=== PATIENT | female | born 1955 | race Caucasian/White ===

== ENCOUNTER 2022-08-11 13:38 | Outpatient (REF) | payer OTHER, MEDICAID, SELFPAY ==
--- NOTE | ~2022-08-11 | MR_ITS ---
EXAMINATION: MR BRAIN WITHOUT AND WITH CONTRAST CLINICAL INFORMATION: 67-year-old with cerebral microvascular disease and seizure. COMPARISON: 01/27/2020 MRI TECHNIQUE: Multiplanar, multisequence MRI of the brain was obtained before and after the intravenous administration of 6 mL Gadavist. FINDINGS: Brain Volume: Oapi-ie-ezrtrzaq generalized diffuse parenchymal volume loss within the limitations of qualitative assessment, similar to the previous exam. Structural: No malformations. Brain and Meninges: DWI sequence demonstrates no restricted diffusion to suggest acute or subacute cerebral ischemia. Gradient refocused imaging demonstrates no abnormal parenchymal magnetic susceptibility artifact to suggest hemorrhage, hemosiderin staining or abnormal parenchymal mineralization. There is a small focus of susceptibility artifact along the inner table of the right frontal calvarium which is unchanged from the previous study, which could reflect a small benign osteoma. Redemonstrated are moderately extensive white matter T2 hyperintensities in the subcortical and deeper periventricular regions of both cerebral hemispheres with areas of confluence in the deep parietal and periatrial regions, similar in appearance. These findings are consistent with moderately advanced chronic ischemic microangiopathy. Small punctate and patchy zones of T2 hyperintensities are seen in the central and dorsal ila, also likely reflecting chronic ischemic microangiopathy, stable in appearance. The mesial temporal lobe structures are bilaterally symmetric and are normal in signal intensity with bilaterally symmetric volume loss commensurate with the degree of whole brain volume loss. Bhandari-white matter differentiation is intact. No intracranial mass lesions, extra-axial fluid collections, space-occupying process, or mass effect are identified and there is no pathologic intracranial enhancement when accounting for some flow artifacts. Ventricles and Subarachnoid Spaces: The ventricular system and subarachnoid spaces are consistent with the degree of overall volume loss and are stable from previous exam without hydrocephalus. Incidental cavum septum pellucidum and cavum vergae is stable. Orbital Structures: Grossly unremarkable within the limitations of the exam. Vascular: Signal voids are noted in the visualized major intracranial vessels. Osseous Structures, Sinuses/Mastoids, Extracranial Soft Tissues: Some retained secretions in the mastoids noted bilaterally, progressed from previous exam which are nonspecific findings. There is minor mucosal thickening in the ethmoid complex, similar to prior study. Osseous marrow signal intensity appears within normal limits. There is cervical spondylosis at C3-C4, unchanged in appearance. Visualized extracranial soft tissue structures appear grossly unremarkable. MR/MR head/brain wo/w con IMPRESSION: 1. Moderately advanced chronic ischemic microangiopathy in the white matter of both cerebral hemispheres and some degree of chronic ischemic microangiopathy in the ila, largely similar in appearance. 2. No acute intracranial process. No intracranial mass lesions, abnormal enhancement, extra-axial fluid collections, space-occupying process, hemorrhage or mass effect and no evidence for hydrocephalus. 3. Gxcc-io-hmwzmhhd generalized diffuse nonspecific brain parenchymal volume loss with corresponding prominence of the ventricular system and sulcal spaces, similar to previous exam. 4. Mild bilateral mastoid effusions on current study which are nonspecific findings.
== END 2022-08-11 13:39 | disposition home or self-care (01) ==
LOC: HO.MRI 13:38
PROVIDERS: Visit Provider Psychiatry & Neurology Neurology
DX: I67.9 Cerebrovascular disease, unspecified (principal); R56.9 Unspecified convulsions
CPT/HCPCS: 70553; A9585

== ENCOUNTER 2022-08-29 10:19 | Outpatient (REF) | payer MEDICAID, SELFPAY | END 2022-08-29 10:20 | disposition home or self-care (01) | LOC: HO.NEURO 10:19 | PROVIDERS: Visit Provider Psychiatry & Neurology Neurology | DX: Z13.89 Encounter for screening for other disorder (principal) ==

== ENCOUNTER 2022-11-09 11:45 | Outpatient (REF) | payer OTHER, MEDICAID, SELFPAY ==
--- NOTE | 2022-11-09 11:50 | EEG_ITS ---
PROCEDURE: 24-hour ambulatory EEG. The waking background activity consists of a low voltage posterior 10 hertz rocio frequency intermixed anteriorly with low-voltage fast frequencies and muscle artifacts. Drowsiness is characterized by diffuse theta slowing, and during sleep symmetrical frontocentral sleep spindles and vertex sharp transients developed over both hemispheres. noted briefly. Arouse is frequent and unremarkable. There are portions where there is no recording with data missing and an abundance of artifact. No focal, lateralizing, or paroxysmal discharges seen. IMPRESSION: This 24-hour ambulatory EEG is within normal limits. MD JASON Marrero/EDWINL / [id number]
== END 2022-11-09 11:46 | disposition home or self-care (01) ==
LOC: HO.NEURO 11:45
PROVIDERS: Visit Provider Psychiatry & Neurology Neurology
DX: R56.9 Unspecified convulsions (principal)
CPT/HCPCS: 95708

== ENCOUNTER 2024-02-19 13:25 | Outpatient (REF) | payer OTHER, MEDICAID, SELFPAY ==
[2024-02-19 14:38] LABS: Basophils Percent Auto 0.3 % (0-2); Eosinophils Absolute Auto 0.1 X10*3/uL (0.0-0.4); Eosinophils Percent Auto 0.6 % (0-4); Hematocrit 42.4 % (37.0-47.0); Hemoglobin 14.7 g/dl (12.0-16.0); Imm Gran Abs Auto 0.02 X10*3/uL (0.00-0.03); Imm Gran Pct Auto 0.2 % (0.0-0.4); Lymphocytes Absolute Auto 5.2 X10*3/uL (1.2-4.9); Lymphocytes Percent Auto 50.2 % (20-40); MANUAL DIFF FLAG SCAN; Mean Corpuscular HGB Conc 34.7 g/dl (31.0-35.0); Mean Corpuscular Hemoglobin 32.2 pg (27.0-33.0); Mean Platelet Volume 11.3 fL (9.4-12.3); Monocytes Absolute Auto 0.6 X10*3/uL (0.1-1.2); Monocytes Percent Auto 5.3 % (2-11); Neutrophils Absolute Auto 4.5 x10*3/uL (2.0-8.3); Neutrophils Percent Auto 43.4 % (45-73); Platelet Count 262 X10*3/uL (160-400); Red Blood Count 4.56 X10*6/uL (4.20-5.50); Red Cell Distribution Width 13.1 % (11.0-16.0); SCAN SMEAR FLAG 1; White Blood Count 10.4 X10*3/uL (4.8-10.8)
[2024-02-19 14:58] LABS: SLIDE REVIEW VERIFIED
[2024-02-19 15:06] LABS: Anion Gap 14 (12-20); Blood Urea Nitrogen 9 mg/dL (9-16); Calcium 10.4 mg/dL (8.4-10.2); Carbon Dioxide 31 mmol/L (22-29); Chloride 100 mmol/L (96-108); Estimated Glomerular Filt Rate > 60; Glucose Random 95 mg/dL (60-115); Potassium 3.9 mmol/L (3.3-5.1); Sodium 141 mmol/L (135-145)
[2024-02-19 15:27] LABS: Erythrocyte Sedimentation Rate 23 MM/HR (0-20)
== END 2024-02-19 13:26 | disposition home or self-care (01) ==
LOC: HO.LAB 13:25
PROVIDERS: Visit Provider Psychiatry & Neurology Neurology
DX: I67.9 Cerebrovascular disease, unspecified (principal)
CPT/HCPCS: 36415; 80048; 85025; 85652

== ENCOUNTER 2024-08-28 11:07 | Outpatient (REF) | payer OTHER, SELFPAY ==
--- NOTE | ~2024-08-28 | MR_ITS ---
EXAMINATION: MR BRAIN WITHOUT CONTRAST CLINICAL INFORMATION: Cerebral microvascular disease. COMPARISON: Brain MRI from 08/11/2022. TECHNIQUE: MRI of the brain was obtained using routine sequences without contrast. FINDINGS: Moderately motion degraded exam. No focal restricted diffusion is demonstrated to suggest acute or subacute cerebral ischemia. No evidence of acute or chronic hemorrhagic products on heme-sensitive imaging. Scattered and partially confluent periventricular, deep white matter, and brainstem T2 FLAIR hyperintensities consistent with moderate underlying microangiopathy. Proportional prominence of the ventricles and sulcal spaces without evidence of obstructive hydrocephalus. No abnormal mass effect. No midline shift. Normal appearance of the pituitary gland. Normal positioning of the cerebellar tonsils. Normal arterial and venous vascular flow voids are present. Normal, homogeneous marrow signal. Mild mucosal thickening of the paranasal sinuses. Trace left-sided mastoid effusion. No signal abnormalities within the right-sided mastoid. MR/MR head/brain wo con IMPRESSION: 1. No acute intracranial abnormalities. 2. Moderate underlying microangiopathy and generalized cerebral volume loss (similar to 2021). Electronically signed by: Arnulfo Virk DO 10/01/2024 06:17 AM SORAYA
== END 2024-08-28 11:08 | disposition home or self-care (01) ==
LOC: HO.MRI 11:07
PROVIDERS: Visit Provider Psychiatry & Neurology Neurology
DX: I67.9 Cerebrovascular disease, unspecified (principal)
CPT/HCPCS: 70551

== ENCOUNTER 2025-08-12 13:28 | Outpatient (AMB) | payer OTHER, SELFPAY ==
--- NOTE | 2025-08-12 13:41 | A.OFFVIS_ITS ---
Intake Visit Reasons: CMD Allergies No Known Allergies Allergy (Unverified 07/08/20 18:28) Medication List - Last Reconciled 08/12/25 by Jozef Brizuela MD alendronate (Fosamax) 70 mg PO QWEEK amitriptyline 75 mg (3 x 25 mg) PO BEDTIME 90 days atorvastatin (Lipitor) 20 mg PO DAILY cholecalciferol (vitamin D3) 25 mcg PO DAILY clonazepam (Klonopin) 0.5 mg orally; 1 tab in am, 1/2 at hs diclofenac sodium 75 mg PO BID PRN hydrochlorothiazide 25 mg PO DAILY lisinopril 20 mg PO DAILY quetiapine (Seroquel) 50 mg PO DAILY sertraline 100 mg PO DAILY sertraline 50 mg PO DAILY zolpidem 10 mg PO BEDTIME HPI Comments Details: Her short term memory is getting worse. Feeling much better than before . Headache 2-3 x a week? lasting 15 meds. Sleeping well at times and not at other times. Had a few falls. Walking and talking while she is sleeping. Shoulder is fine. Has tinnitus in both ears. Still loses balance and can fall and starts shaking and can fall. Gets tingling in fingers . Spaces out in the conversation. Forgetful and repeats herself multiple times within a few minutes. Sometimes she also has some spatial disorientation. Starts humming . There is been no change in her medication. Lung Bx on 07/11/19 was negative. Had a concussion on May 25. BP is better. No further syncopal episodes since August 2018. Pt has history of fainting since she was a child, she has lived with these episodes all her life and has not been treated for it. Denies recent infection, fevers, unintended weight loss. Pt reports consistent ringing in both ears, for 10 years. Pt reports bilateral numbness of her face upon waking which occurs roughly once a month. Pt has had decreased appetite for several years, and fa tigue and chills for roughly 1 year. Pt reports marajuana improves symptoms of headache, anxiety, depression, and decreased appetite. 3 syncopal episodes 2017 and 2018 X2 last one 2017. [facility] Medical History (Updated 08/12/25 @ 13:51 by Jozef Brizuela MD) Osteoporosis Hypercholesteremia Anxiety and depression Surgical History (Updated 08/10/25 @ 14:35 by FORREST Suh) History of bladder surgery Family History (Updated 08/10/25 @ 14:36 by FORREST Suh) Mother HTN (hypertension) Maternal Uncle HTN (hypertension) Review of Systems Const Details: Sleep:? Difficulty getting to sleepdenies.? Difficulty maintaining sleepdenies?.? Urge to move legsdenies.? Teeth grindingdenies.? Shouting or Kicking during sleep denies.? Abnormal behavior during sleepdenies.? Excessive sleepdenies.? Snoring denies.? Daytime sleepinessdenies. ???General/Constitutional:? Admits?Change in appetite,skips breakfast and lunch. Consistent in past 4 years,?denies.? Admits?Chills,1 year,?denies.? Admits?Fatigue,1 year,?denies.? Feverdenies.? Admits?Headache.? Weight gaindenies.? Weight lossdenies. ???Ophthalmologic:? Blurred visiondenies.? Diminished visual acuitydenies. ???ENT:? Stuffinessdenies.? Decreased hearingdenies.? Dry mouthdenies.? Ear paindenies.? Nosebleeddenies.? Ringing in the earsaffecting both ears.? Sinus paindenies.? Sore throatdenies.? Swollen glandsdenies. ???Endocrine:? Cold intolerancedenies.? Excessive thirstdenies.? Frequent urinationdenies.? Heat intolerancedenies. ???Respiratory:? Shortness of breathdenies.? Chest paindenies.? Coughdenies. ???Breast:? Breast lumpdenies.? Nipple dischargedenies. ???Cardiovascular:? Chest pain at restdenies.? Chest pain with exertiondenies.? Claudicationdenies .? Dizzinessdenies.? Fluid accumulation in the legsdenies.? Irregular heartbeat denies.? Palpitationsdenies. ???Gastrointestinal:? Abdominal paindenies.? Constipationdenies.? Diarrheadenies.? Difficulty swallowingdenies.? Heartburndenies.? Nauseadenies.? Rectal bleedingdenies. ???Hematology:? Easy bruisingdenies.? Prolonged bleedingdenies. ???Genitourinary:? Frequent urinationdenies.? Urgencydenies.? Incontinencedenies.? Erectile Dysfunctiondenies. ???Musculoskeletal:? Neck paindenies.? Back paindenies.? Muscle achesdenies.? Painful jointsdenies.? Sciaticadenies.? Weaknessdenies. ???Podiatric:? Difficulty walkingdenies.? Foot numbnessdenies. ???Neurologic:? Difficulty swallowingdenies.? Balance difficultyadmits.? Coordinationnormal.? Difficulty speakingdenies.? Dizzinessdenies.? Faintingdenies.? Gait abnormality admits.? Headacheadmits.? Loss of strengthdenies.? Loss of use of extremity denies.? Low back paindenies.? Memory lossthat is new.? Seizuresdenies.? Tics denies.? Tingling/Numbnessdenies.? Transient loss of visiondenies.? Tremordenies . ???Psychiatric:? Anxietydenies.? Auditory/visual hallucinationsdenies.? Delusionsdenies.? Depressed mooddenies.? Stressorsdenies.? Substance abusedenies.? Suicidal thoughtsdenies. Physical Exam Neuro Other: Neurological: Mental Status:??Pain on shoulder movement. alert and oriented X 3,?Normal attention, orientation, memory and affect.?Cranial Nerves:??Pupils are equal, round and reactive to light. Fundoscopy shows normal disc bilaterally. External occular muscles are intact. Visual dykes are full, no ptosis. Face is symmetrical, no facial weakness or droop. Facial sensations are normal. Tongue protrudes in midline. Palate elevates symmetrically. Shoulder shrugging is normal..?Motor Examination:??Normal muscle tone, bulk and strength,?No atrophy or fasciculations,?No drift of the extended upper extremities,?Deep tendon reflexes are 2+?,?Plantars are flexor?.?Straight Leg Raising:??90 degrees.?Sensory Exam:??Normal light touch, temperature, pinprick, vibration and joint-position sensations?,?Rhomberg sign is absent.?Coordination:??no ataxia,?no titubation,?xalouq-mw-xwgs, yson-ndju-efgw test and rapid alternating movements were normal.?Gait Exam:??Within normal limits.?Cerebellar Signs:??Wagfzh-vy-warp and ryrw-kw-pcto is normal,?no dysdiadochokines ia?.?Extrapyramidal System:??No tremor, rigidity with normal facial expressions,?No bradykinesia, no bradyphrenia. Normal arm swing and posture. No propulsion or retropulsion.?Speech:??Normal,?no dysphasia or dysarthria..? Mini Mental Status Exam: Level of Consciousness:??Alert.?Orientation:??Knows correct year, month, date, day and season,?Knows correct city, county and state. Knows correct location and floor.?Registration:??Able to register 3 objects.?Attention:??Serial 7's performed accurately.?Recall:??Able to recall 3 out of 3 objects.?Language:??Normal spontaneous speech, fluency, repetition,naming, comprehension, reading and writing.?Total Score:??30/30.? General Examination: GENERAL APPEARANCE:??normal,?in no acute d istress.?HEAD:??normocephalic,?atraumatic.?EYES:??sclera non- icteric,?conjunctiva clear.?EARS:??auditory canal clear,?tympanic membrane intact, clear.?NOSE:??no lesions.?ORAL CAVITY:??gums normal,?mucosa moist,?no lesions.?THROAT:??clear.?NECK/THYROID:??no cervical lymphadenopathy,?thyroid normal,?neck supple, full range of motion,?no carotid bruit.?SKIN:??no rashes,?no significant birthmarks.?HEART:??S1, S2 normal,?no murmurs.?LUNGS:??clear anteriorly and posteriorly.?CHEST:??no gross rib deformity,?clear to auscultation.?BACK:??normal exam of spine.?EXTREMITIES:??no edema.?PERIPHERAL PULSES:??normal.?PSYCH:??alert, oriented,?cognitive function intact,?cooperative with exam.? Assessment & Plan Assessment & Plan (1) Cerebral microvascular disease: Comment: Normal Echo and EEG. MRI reviewed shows extensive white matter changes consistent with extensive microvascular disease and possibly MS. 06/21/22 EEG- WNL Alcohol abuse and H/O previous seizures. [id number] EEG-WNL 08/11/22 MRI brain: Moderately advanced chronic ischemic microangiopathy in the white matter of both cerebral hemispheres and some degree of chronic ischemic microangiopathy in the ila, largely similar in appearance. 2. No acute intracranial process. No intracranial mass lesions, abnormal enhancement, extra- axial fluid collections, space-occupying process, no hemorrhage or mass effect and no evidence for hydrocephalus.3. Hqvc-ja-xcvmzaea generalized diffuse nonspecific brain parenchymal volume loss with corresponding prominence of the ventricular system and sulcal spaces, similar to previous exam.4. Mild bilateral mastoid effusions on current study which are nonspecific findings. 11/09/22 24 hr EEG normal. 09/03/24 MRI brain shows mod severe white matter microvascular disease unchanged from 2020. Mild generalized atrophy. Code(s): I67.89 - Other cerebrovascular disease Category: Medical (2) Syncope: Code(s): R55 - Syncope and collapse Category: Medical (3) Tension headache: Code(s): G44.209 - Tension-type headache, unspecified, not intractable Category: Medical (4) MCI (mild cognitive impairment) with memory loss: Code(s): G31.84 - Mild cognitive impairment of uncertain or unknown etiology Category: Medical Plan Add Donepezil 5mg for memory loss. Medications: New donepezil 5 mg PO DAILY 30 tabs 6RF Coding Level of Care Code Est Pt Level 4 (92451) Diagnoses Cerebral microvascular disease I67.89 Syncope R55 Tension headache G44.209 MCI (mild cognitive impairment) with memory loss G31.84
--- OUTSIDE RECORDS SUMMARY | 2025-08-12 19:07 | XMS_ITS | Encounter Summary ---
Author Organization [facility] Address [address] [place] [address] Phone Care Team Providers Care Family Mediator Name Role Phone Allie Ceron NP Primary Care Provider Nadira Goetz MD Primary Care Provider + [phone] Nadira Goetz MD Primary Care Provider + [phone] Encounter Details Date Type Department Care Team (Late st Contact Info) Description 11/08/2022 Procedure Pass [facility] Endoscopy Admitting Dept Virtual Department [address] [place] [id number] Social History Tobacco Use Types Packs/Day Years Used Date Smoking Tobacco: Every Day Cigarettes Smokeless Tobacco: Never Alcohol Use Standard Drinks/Week Comments Not Currently 0 (1 standard drink = 0.6 oz pur e alcohol) on the weekends Comments Unknown Sex and Gender Information Value Date Recorded Sex Assigned at Female 07/29/2018 9:27 AM EDT Legal Sex Female 5:30 AM EST Gender Identity Female 07/29/2018 9:27 AM EDT Sexual Orientation Straight 07/29/2018 9: 27 AM EDT documented as of this encounter Plan of Treatment Upcoming Encounters Date Type Department Care Team (Late st Contact Info) Description 05/16/2025 Procedure Pass [facility] [address] [place] [address] 06/15/2025 Procedure Pass [address] [address] 08/14/2025 2:30 PM EDT Appointment [address] [address] Mando Givens MD [address] [place] [address] 08/17/2025 1:45 PM EDT Appointment Echo Lab [address] [address] Lam Mcguire MD [address] [place] [address] 08/21/2025 9:00 AM EDT Appointment Non-Invasive Cardiology [address] [place] [address] [place] [address] Jacoby Espinoza DO [address] [place] [address] 10/02/2025 9:30 AM EST Office [place] [facility] [place]ergy and Critical Care Medicine [address] [place] [address] Mando Givens MD [address] [place] [address] 11/02/2025 9:00 AM EST Office Visit [facility] [address], [address] [address] Katie Ho PA-C [address] [place] [address] 06/07/2026 1:30 PM EDT Office Visit [facility] [address] [facility], [address] [address] Jacoby Espinoza DO [address] [place] [address] documented as of this encounter Visit Diagnoses Not on filedocumented in this encounter Additional Health Concerns Infection Onset Date Last Indicated Resolved Time CoV-Risk 11/28/2024 11/28/2024 12/09/2024 1:22 AM EST documented as of this encounter Care Teams Family Mediator Relationship Specialty Start Date End Date Allie Ceron NP [address] [place] [address] PCP - General Nurse Practitioner 11/08/22 02/20/24 Nadira Goetz MD [address] [place] [address] [email or web address] PCP - General Family Medicine 02/21/24 05/14/25 Nadira Goetz MD [address] [place] [address] [place] [phone] [email or web address] PCP - General Family Medicine 05/15/25 documented as of this encounter Additional Source Comments The information contained in this document represents components of the legal health record. It is not the complete legal health record.[facility]
--- OUTSIDE RECORDS SUMMARY | 2025-08-12 19:07 | XMS_ITS | Encounter Summary ---
Author Organization [facility] Address [address] [place] [address] Phone Care Team Providers Care District Plant Superintendent Name Role Phone Perry Carreon MD Primary Care Provider [phone] Allie Ceron NP Primary Care Provider Nadira Goetz MD Primary Care Provider + [phone] Nadira Goetz MD Primary Care Provider + [phone] Encounter Details Date Type Department Care Team (Late st Contact Info) Description 07/30/2018 Procedure Pass [facility], [facility] [address] [place] [address] Social History Tobacco Use Types Packs/Day Years Used Date Smoking Tobacco: Every Day Cigarettes Smokeless Tobacco: Never Alcohol Use Standard Drinks/Week Comments Yes 0 (1 standard drink = 0.6 oz [...] Info) Description 05/16/2025 Procedure Pass [facility] [address] [place] [address] 06/15/2025 Procedure Pass [facility], Ct Scan [facility] [address] [place] [address] 08/14/2025 2:30 PM EDT Appointment [facility] Ct Scan - [facility] [address] [place] [address] Mando Givens MD [address] [place] [address] 08/17/2025 1:45 PM EDT Appointment Echo Lab [address] [place] [address] Lam Mcguire MD [address] [place] [address] 08/21/2025 9:00 AM EDT Appointment Non-Invasive Cardiology [address] [place] [address] [place] [address] Jacoby Espinoza DO [address] [place] [phone] 10/02/2025 9:30 AM EST Office Visit [facility] Pulmonary, Allergy and Critical Care Medicine [address] [place] [address] Mando Givens MD [address] [place] [address] 11/02/2025 9:00 AM EST Office Visit [facility] [address], [address] [address] Katie Ho PA-C [address] [place] [address] 06/07/2026 1:30 PM EDT Office Visit [facility] [address] [facility], [address] [place] [address] Jacoby Espinoza DO [address] [place] [address] [email or web address] documented as of this encounter Visit Diagnoses Not on filedocumented in this encounter Additional Health Concerns Infection Onset Date Last Indicated Resolved Time COVID-19 04/24/2022 04/24/2022 05/15/2022 1:21 AM EDT CoV-Risk 11/28/2024 11/28/2024 12/09/2024 1:22 AM EST documented as of this encounter Care Teams District Plant Superintendent Relationship Specialty Start Date End Date Perry Carreon MD PCP - General Internal Medicine 07/29/18 11/07/22 Allie Ceron NP [address] [place] [address] [email or web address] PCP - General Nurse Practitioner 11/08/22 02/20/24 Nadira Goetz MD [address] [place] [address] [email or web address] PCP - General Family Medicine 02/21/24 05/14/25 Nadira Goetz MD [address] [place] [address] [place] [address] [email or web address] PCP - General Family Medicine 05/15/25 documented as of this encounter Additional Source Comments The information contained in this document represents components of the legal health record. It is not the complete legal health record.[facility]
--- OUTSIDE RECORDS SUMMARY | 2025-08-12 19:07 | XMS_ITS | Encounter Summary ---
Author Organization [facility] Address [address] [place] [address] Phone Care Team Providers Care Director Of Resource Development Name Role Phone Perry Carreon MD Primary Care Provider [phone] Allie Ceron NP Primary Care Provider Nadira Goetz MD Primary Care Provider + [phone] Nadira Goetz MD Primary Care Provider + [phone] Encounter Details Date Type Department Care Team (Late st Contact Info) Description 04/27/2022 Procedure Pass [facility] Admitting Dept Virtual Department [address] [place] [address] Social History Tobacco Use Types Packs/Day Years [...] Info) Description 05/16/2025 Procedure Pass [facility] [place] [address] [place] [address] 06/15/2025 Procedure Pass [facility], Ct Scan - [facility] [address] [place] [address] 08/14/2025 2:30 PM EDT Appointment [facility] Ct Scan - [facility] [address] [place] [address] Mando Givens MD [address] [place] [address] 08/17/2025 1:45 PM EDT Appointment Echo Lab [address] [place] [address] Lam Mcguire MD [address] [place] [address] 08/21/2025 9:00 AM EDT Appointment Non-Invasive Cardiology [address] [place] [address] [place] [address] Jacoby Espinoza DO [address] [place] [address] 10/02/2025 9:30 AM EST Office [place] [facility] [place] Allergy and Critical Care Medicine [address] [place] [address] Mando Givens MD [address] [place] [address] 11/02/2025 9:00 AM EST Office Visit [facility] [address], [address] [address] Katie Ho PA-C [address] [place] [address] 06/07/2026 1:30 PM EDT Office Visit [facility] [address] 3rd [facility], [address] [place] [address] Jacoby Espinoza DO [address] [place] [address] [email or web address] documented as of this encounter Visit Diagnoses Not on filedocumented in this encounter Additional Health Concerns Infection Onset Date Last Indicated Resolved Time COVID-19 04/24/2022 04/24/2022 05/15/2022 1:21 AM EDT CoV-Risk 11/28/2024 11/28/2024 12/09/2024 1:22 AM EST documented as of this encounter Care Teams Director Of Resource Development Relationship Specialty Start Date End Date Perry Carreon MD PCP - General Internal Medicine 07/29/18 11/07/22 Allie Ceron NP [address] [place] [address] [email or web address] PCP - General Nurse Practitioner 11/08/22 02/20/24 Nadira Goetz MD [address] [place] [address] [email or web address] PCP - General Family Medicine 02/21/24 05/14/25 Nadira Goetz MD [address] [place] [address] [place] [address] [email or web address] PCP - General Family Medicine 05/15/25 documented as of this encounter Additional Source Comments The information contained in this document represents components of the legal health record. It is not the complete legal health record.[facility]
--- OUTSIDE RECORDS SUMMARY | 2025-08-12 19:07 | XMS_ITS | Encounter Summary ---
Author Organization [facility] Address [address] [place] [address] Phone Care Team Providers Care Microbiology Quality Control Technician Name Role Phone Perry Carreon MD Primary Care Provider [phone] Allie Ceron NP Primary Care Provider Nadira Goetz MD Primary Care Provider + [phone] Nadira Goetz MD Primary Care Provider + [phone] Encounter Details Date Type Department Care Team (Late st Contact Info) Description 08/01/2018 Procedure Pass [facility], [facility] [address] [place] [address] Social History Tobacco Use Types Packs/Day Years [...] Info) Description 05/16/2025 Procedure Pass [facility] [place] [address] [place] [address] 06/15/2025 Procedure Pass [facility], Ct Scan - [facility] [address] [place] [address] 08/14/2025 2:30 PM EDT Appointment [facility] Ct Scan - [facility] [address] [place] [address] Mando Givens MD [address] [place] [address] 08/17/2025 1:45 PM EDT Appointment Echo Lab [address] [place] [address] Lam Mcguire MD [address] [place] [address] 08/21/2025 9:00 AM EDT Appointment Non-Invasive Cardiology [address] [place] [address] [place] [address] Jacoby Espinoza DO [address] [place] [address] 10/02/2025 9:30 AM EST Office Visit [facility] Pulmonary, Allergy and Critical Care Medicine [address] [place] [address] Mando Givens MD [address] [place] [address] 11/02/2025 9:00 AM EST Office Visit [facility] [address], [address] [address] Katie Ho PA-C [address] [place] [address] 06/07/2026 1:30 PM EDT Office Visit [facility] [address] 3rd [facility], [address] [place] [address] Jacoby Espinoza DO [address] [place] [address] [email or web address] documented as of this encounter Visit Diagnoses Not on filedocumented in this encounter Additional Health Concerns Infection Onset Date Last Indicated Resolved Time COVID-19 04/24/2022 04/24/2022 05/15/2022 1:21 AM EDT CoV-Risk 11/28/2024 11/28/2024 12/09/2024 1:22 AM EST documented as of this encounter Care Teams Microbiology Quality Control Technician Relationship Specialty Start Date End Date Perry Carreon MD PCP - General Internal Medicine 07/29/18 11/07/22 Allie Ceron NP [address] [place] [address] [email or web address] PCP - General Nurse Practitioner 11/08/22 02/20/24 Nadira Goetz MD [address] [place] [address] [email or web address] PCP - General Family Medicine 02/21/24 05/14/25 Nadira Goetz MD [address] [place] [address] [place] [address] [email or web address] PCP - General Family Medicine 05/15/25 documented as of this encounter Additional Source Comments The information contained in this document represents components of the legal health record. It is not the complete legal health record.[facility]
--- OUTSIDE RECORDS SUMMARY | 2025-08-12 19:07 | XMS_ITS | Encounter Summary ---
Author Organization [facility] Address [address] [place] [address] Phone Care Team Providers Care Head Refrigeration Engineer Name Role Phone Perry Carreon MD Primary Care Provider [phone] Allie Ceron NP Primary Care Provider Nadira Goetz MD Primary Care Provider + [phone] Nadira Goetz MD Primary Care Provider + [phone] Encounter Details Date Type Department Care Team (Late st Contact Info) Description 07/29/2018 Procedure Pass [facility] 30 [place] [address] Social History Tobacco Use Types Packs/Day Years [...] 05/16/2025 Procedure Pass [facility] [place] [address] [place] [address] 06/15/2025 Procedure Pass [facility], [facility] 30 [place] [address] 08/14/2025 2:30 PM EDT Appointment [facility], Ct Scan - [facility] 30 [place] [address] Mando Givens MD [address] [place] [address] 08/17/2025 1:45 PM EDT Appointment Echo Lab [address] [place] [address] Lam Mcguire MD [address] [place] [address] 08/21/2025 9:00 AM EDT Appointment Non-Invasive Cardiology [address] [place] [address] [place] [address] Jacoby Espinoza DO [address] [place] [address] 10/02/2025 9:30 AM EST Office [place] [facility] [place], Allergy and Critical Care Medicine [address] [place] [address] [place] [address] Mando Givens MD [address] [place] [address] 11/02/2025 9:00 AM EST Office Visit [facility] [address], [address] [address] Katie Ho PA-C [address] [place] [address] 06/07/2026 1:30 PM EDT Office Visit [facility] [address] 3[address] [facility], [address] [place] [address] Jacoby Espinoza DO [address] [place] [address] [email or web address] documented as of this encounter Visit Diagnoses Not on filedocumented in this encounter Additional Health Concerns Infection Onset Date Last Indicated Resolved Time COVID-19 04/24/2022 04/24/2022 05/15/2022 1:21 AM EDT CoV-Risk 11/28/2024 11/28/2024 12/09/2024 1:22 AM EST documented as of this encounter Care Teams Head Refrigeration Engineer Relationship Specialty Start Date End Date Perry Carreon MD PCP - General Internal Medicine 07/29/18 11/07/22 Allie Ceron NP [address] [place] [address] PCP - General Nurse Practitioner 11/08/22 02/20/24 Nadira Goetz MD [address] [place] [address] [email or web address] PCP - General Family Medicine 02/21/24 05/14/25 Nadira Goetz MD [address] [place] [address] [place] [address] [email or web address] PCP - General Family Medicine 05/15/25 documented as of this encounter Additional Source Comments The information contained in this document represents components of the legal health record. It is not the complete legal health record.[facility]
--- OUTSIDE RECORDS SUMMARY | 2025-08-12 19:07 | XMS_ITS | Encounter Summary ---
Author Organization [facility] Address [address] [facility] [address] [place] [address] Phone Care Team Providers Care Elevator Constructor Electric Name Role Phone Allie Ceron NP Primary Care Provider Nadira Goetz MD Primary Care Provider + [phone] Nadira Goetz MD Primary Care Provider + [phone] Encounter Details Date Type Department Care Team (Late st Contact Info) Description 03/07/2023 Transcribe Orders Virtual Department 30 [place] [address] Donna Holcomb PA [address] [place] [address] vinay Breast screening (Primary Dx) Social History Tobacco Use Types Packs/Day Years Used Date Smoking Tobacco: Every Day Cigarettes Smokeless Tobacco: Never Alcohol Use Standard Drinks/Week Comments Not Currently 0 (1 standard drink = 0.6 oz pur e alcohol) on the weekends Education Answer Date Recorded Are you interested in more education? Not on nancy e 02/16/2023 Are you concerned about learning? Not on file 02/16/2023 No 02/16/2023 No 02/16/2023 Intimate Partner Violence Answer Date R ecorded Are you denied basic needs s uch as food, clothing, or medical care? No 02/01/2023 In the past 12 months have y ou been in a relationship with a person who hurts, threatens, or tries to control you? No 02/01/2023 Are you denied basic needs s uch as food, clothing, or medical care? No 02/01/2023 In the past 12 months have y ou been in a relationship with a person who hurts, threatens, or tries to control you? No 02/01/2023 Comments Unknown Sex and Gender Information Value Date Recorded Sex Assigned at Female 07/29/2018 9:27 AM EDT Legal Sex Female 5:30 AM EST Gender Identity Female 07/29/2018 9:27 AM EDT Sexual Orientation Straight 07/29/2018 9: 27 AM EDT documented as of this encounter Plan of Treatment Upcoming Encounters Date Type Department Care Team ([facility] st Contact Info) Description 05/16/2025 Procedure Pass [facility] [address] [place] [address] 06/15/2025 Procedure Pass [address] [address] 08/14/2025 2:30 PM EDT Appointment [address] [address] Mando Givens MD [address] [place] [address] 08/17/2025 1:45 PM EDT Appointment Echo [facility] [address] [place] [address] Lam Mcguire MD [address] [place] [address] 08/21/2025 9:00 AM EDT Appointment Non-Invasive Cardiology [address] [place] [address] [place] [address] Jacoby Espinoza DO [address] [place] [address] 10/02/2025 9:30 AM EST Office Visit [facility] Pulmonary, Allergy and Critical Care Medicine 10 [place] [address] Mando Givens MD [address] [place] [address] 11/02/2025 9:00 AM EST Office Visit [facility] 3rd [facility], [address] [place] [address] Katie Ho PA-C [address] [place] [address] 06/07/2026 1:30 PM EDT Office Visit [facility] [address], [address] [place] [address] Jacoby Espinoza DO 22 [facility] [address] [place] [address] Scheduled Orders Name Type Priority Associated Diagnoses Orde r Schedule Mammogram Screening (Bilateral) Imaging Routine Breast screening Expected: 03/07/2023, Expires: 09/07/2025 documented as of this encounter Visit Diagnoses Diagnosis Breast screening- Primary Breast screening, unspecified documented in this encounter Additional Health Concerns Infection Onset Date Last Indicated Resolved Time CoV-Risk 11/28/2024 11/28/2024 12/09/2024 1:22 AM EST documented as of this encounter Care Teams Elevator Constructor Electric Relationship Specialty Start Date End Date Allie Ceron NP [address] [place] [address] [email or web address] PCP - General Nurse Practitioner 11/08/22 02/20/24 Nadira Goetz MD 70 [place] [address] PCP - General Family Medicine 02/21/24 05/14/25 Nadira Goetz MD [address] [place] [address] Dr [place], [place] [address] [email or web address] PCP - General Family Medicine 05/15/25 documented as of this encounter Additional Source Comments The information contained in this document represents components of the legal health record. It is not the complete legal health record.[facility]
--- OUTSIDE RECORDS SUMMARY | 2025-08-12 19:07 | XMS_ITS | Encounter Summary ---
Author Organization [facility] Address [address] [place] [address] Phone Care Team Providers Care Treating Plant Supervisor Name Role Phone Nadira Goetz MD Primary Care Provider + [phone] Nadira Goetz MD Primary Care Provider + [phone] Encounter Details Date Type Department Care Team (Late st Contact Info) Description 12/22/2024 Procedure Pass [facility], Ct Scan - [address] [address] Social History Tobacco Use Types Packs/Day Years Used Date Smoking Tobacco: Every Day Cigarettes 0.3 54 Smokeless Tobacco: Never Comments:Patient has been sm oking since age of [age] years old. She had smoked about 1-1/2 packs/day up until 3 years ago when she started to cut back with this and now about 5 to 6 cigarettes/day. She has a +75 pack year history. Alcohol Use Standard Drinks/Week Comments Not Currently 0 (1 standard drink = 0.6 oz pure alcohol) In the history it does appear she had problems with alcohol use in the past. States she has not been drinking for 2 years Education Answer Date Recorded Are you interested in more education? Not on nancy e 02/16/2023 Are you concerned about learning? Not on file 02/16/2023 No 02/16/2023 No 02/16/2023 Digital Access Answer Date Recorded No 03/16/2023 No 03/16/2023 Reliable internet access at home? Not on file 03/16/2023 Device with a working camera? Not on file Intimate Partner Violence Answer Date R ecorded Are you denied basic needs s uch as food, clothing, or medical care? No 11/28/2024 In the past 12 months have y ou been in a relationship with a person who hurts, threatens, or tries to control you? No 11/28/2024 Are you denied basic needs s uch as food, clothing, or medical care? No 11/28/2024 In the past 12 months have y ou been in a relationship with a person who hurts, threatens, or tries to control you? No 11/28/2024 Comments Unknown Sex and Gender Information Value Date Recorded Sex Assigned at Female 07/29/2018 9:27 AM EDT Legal Sex Female 5:30 AM EST Gender Identity Female 07/29/2018 9:27 AM EDT Sexual Orientation Straight 07/29/2018 9: 27 AM EDT documented as of this encounter Plan of Treatment Upcoming Encounters Date Type Department Care Team (Late st Contact Info) Description 05/16/2025 Procedure Pass [facility] [address] [place] [address] 06/15/2025 Procedure Pass [address] [address] 08/14/2025 2:30 PM EDT Appointment [address] [address] Mando Givens MD [address] [place] [address] 08/17/2025 1:45 PM EDT Appointment [facility] [address] [place] [address] Lam Mcguire MD [address] [place] [address], [address] [address] 08/21/2025 9:00 AM EDT Appointment Non-Invasive Cardiology [address] [place] [address] [place] [address] Jacoby Espinoza DO [address] [place] [address] [email or web address] 10/02/2025 9:30 AM EST Office Visit [facility] Pulmonary, Allergy and Critical Care Medicine 10 [facility] [place] [address] Mando Givens MD 30 [place] [address] 11/02/2025 9:00 AM EST Office Visit [facility] [address], [address] [address] Katie Ho PA-C [address] [place] [address] 06/07/2026 1:30 PM EDT Office Visit [facility] [address], [address] [address] Jacoby Espinoza DO [address] [address] documented as of this encounter Visit Diagnoses Not on filedocumented in this encounter Care Teams Treating Plant Supervisor Relationship Specialty Start Date End Date Nadira Goetz MD PCP - General Family Medicine 02/21/24 05/14/25 Nadira Goetz MD [address] [place] [address] [place] [address] [email or web address] PCP - General Family Medicine 05/15/25 documented as of this encounter Additional Source Comments The information contained in this document represents components of the legal health record. It is not the complete legal health record.[facility]
--- OUTSIDE RECORDS SUMMARY | 2025-08-12 19:07 | XMS_ITS | Clinical Summary ---
Author Organization [facility] Address [address] [place] [address] Phone Care Team Providers Care Motion Picture Set Grip Name Role Phone Nadira Goetz MD Primary Care Provider + [phone] Allergies Active Allergy Reactions Criticality Noted Date Comments Iodinated Contrast Media Shortness Of Breath,Flushing High 05/25/2019 Medications mirabegron (MYRBETRIQ) 25 mg Tb24 Take 25 mg by mouth daily. Active rosuvastatin (CRESTOR) 40 MG tablet Take 40 mg by mouth nightly. Active QUEtiapine (SEROQUEL) 50 MG tablet Take 50 mg by mouth nightly. Active aspirin 81 mg chewable tablet Take 1 tablet (81 mg total) by mouth daily. 8 Active Additional Information Patient not taking.Reported on 07/31/2025 tiZANidine (ZANAFLEX) 4 MG tabletIndicatio ns:muscle spasm Take 4 mg by mouth every 8 (eight) hours as needed. Indications: muscle spasm Active alendronate (FOSAMAX) 70 MG tablet Take 70 mg by mouth once a week. 2 Active fluticasone propionate (FLONASE) 50 mcg/actuation nasal spray 2 sprays by Nasal route daily as needed. 1 Active zolpidem (AMBIEN) 10 mg tablet Take 10 mg by mouth nightly at bedtime. 3 Active clonazePAM (KLONOPIN) 1 MG tablet Take 1 mg by mouth 2 (two) times a day as needed. 3 Active amitriptyline (ELAVIL) 25 MG tablet Take 50 mg by mouth nightly at bedtime. 2 Active hydroCHLOROthia zide (HYDRODIURIL) 25 MG tablet Take 25 mg by mouth. 1 Active escitalopram oxalate (LEXAPRO) 10 MG tablet Take 1 tablet by mouth every morning. 3 Active ibuprofen (ADVIL,MOTRIN) 600 MG tablet Take 600 mg by mouth 3 (three) times a day as needed. 3 Active lisinopril (PRINIVIL,ZESTR IL) 20 MG tablet Take 40 mg by mouth every morning. 4 Active sertraline (ZOLOFT) 100 MG tablet Take 1 tablet by mouth every morning. 4 Active fluticasone-ume clidin-vilanter (TRELEGY ELLIPTA) 200-62.5-25 mcg inhaler Inhale 1 puff into the lungs daily. 60 each 11 5 12/17/19 26 Active guaiFENesin (MUCINEX) 600 mg ER biphasic tablet Take 2 tablets (1,200 mg total) by mouth 2 (two) times a day. 120 tablet 11 5 12/23/19 26 Active albuterol 90 mcg/actuation inhaler Inhale 2 puffs into the lungs every 6 (six) hours as needed for wheezing. 18 g 11 5 Active diclofenac sodium (VOLTAREN) 75 MG EC tablet TAKE 1 TABLET ORALLY 2 TIMES A DAY NEEDED FOR PAIN FOR 30 DAYS 5 Active fluticasone propionate (FLONASE) 50 mcg/actuation nasal spray 2 sprays by Nasal route daily. 16 g 11 5 Active Active Problems Problem Noted Date Diagnosed Date Paroxysmal ventricular tachycardia 07/31/2025 Assessment & Plan (07/31/2025 9:03 AM EDT): She does not have any presyncopal or syncopal episodes or chest discomfort but given the ventricular ectopy we do need to investigate with an echo and stress test which were both ordered Left bundle branch block 06/03/2025 Assessment & Plan (06/03/2025 11:53 AM EDT): She has an echo ordered we will take a look at her LV function and valvular structures but I do not anticipate anything significant we will see her in a year's follow-up or sooner if needed 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 Her pulmonary function test did not reveal any clear fixed obstructive defect however there is a mild decrease in the diffusion capacity which may be related to some early low- grade emphysematous lung process related to her ongoing tobacco use and/or poorly controlled asthma. Currently her asthma/COPD appears to be under much better control on a maintenance inhaler of Trelegy. She is not requiring the use of her rescue inhaler at this time. During the last visit she was in the midst of an exacerbation and she responded nicely to a Medrol pack and a Z-Thee. Given the patient's ongoing tobacco use and her pack-year history she does meet criteria for ongoing low- dose CT scan lung cancer screening. The plan will be to repeat a CT scan of her chest in mid-to-late April which will be approximately 6 months from her last one performed at [facility]-it is not clear to me that this was a low-dose CT. The patient is also reporting poor sleep quality and also reports that her daughter has been witnessing apneic events. She does have anxiety and I am not sure she could tolerate noninvasive positive pressure ventilation but she is willing to be evaluated and consider this possibility. I do think she would benefit from seeing a sleep specialist. Chronic obstructive pulmonar y disease with acute exacerbation 11/29/2023 Assessment & Plan (07/31/2025 9:03 AM EDT): Present but stable hopefully she is not abusing her albuterol Assessment & Plan (06/03/2025 11:52 AM EDT): Present and treated with multiple inhalers Depression 07/29/2018 Assessment & Plan (07/30/2018 12:14 PM EDT): Takes Seroquel, clonazepam Hyperlipidemia 07/29/2018 Assessment & Plan (07/31/2025 9:03 AM EDT): LDL should ideally be less than 100 and preferably less than 70 Assessment & Plan (06/03/2025 11:52 AM EDT): She is on a high intensity statin agent being Crestor 40 mg daily LDL should be less than 100 she is not known to have diabetes or CAD. Assessment & Plan (07/31/2018 5:31 PM EDT): Continue with atorvastatin Syncope 07/29/2018 Assessment & Plan (08/01/2018 10:20 AM EDT): Patient presented with symptoms of headache, muscle aches, facial numbness, and a numbness of her fingers which have been going on for months most pronounced over the last 2 months. She also mentions to me that she has had some unintentional weight loss due to not feeling well. Patient had undergone a CT which was noted to be negative. MRI revealed no CVA/mass. Extensive white matter changes with a pattern suggestive of MS but possibly all due to's chronic small vessel disease. teleneuro feels MRI findings are nonspecific and given her history of smoking, hypercholesterolemia and hypertension it is most likely due to vascular disease.differential diagnosis is extensive and therefore we are awaiting her EEG results. -Obtain labs such as tickborne panel, RPR, and HIV- pending- pt will need to f/u with pcp on results- she is aware. Discussed smoking cessation and etoh reduction with her. -If EEG is negative patient may have an MRI with contrast and MRA brain as an outpatient -Will need follow-up with neurology in 4-6 weeks Tobacco abuse 07/29/2018 Assessment & Plan (07/30/2018 12:12 PM EDT): Smoking cessation information given Nicotine patch Nicotine gum as needed Seizure 07/29/2018 Assessment & Plan (08/01/2018 10:03 AM EDT): There is apparently a remote history of seizure in childhood, not on any antiseizure meds at this time. She also has a history of alcohol abuse according to the daughters and will monitor for any withdrawal symptoms, no significant sx, states she is more of an intermittent weekend drinker, cessation discussed EEG pending OA (osteoarthritis) 07/29/2018 Assessment & Plan (07/29/2018 1:26 PM EDT): Tylenol as needed Encounters Date Type Department Care Team Description 08/12/2025 Telephone [facility] [address], [address] [place] [address] Jacoby Espinoza DO 07/31/2025 7:45 AM EDT Office Visit [facility] [address], [address] [place] [address] Jacoby Espinoza DO Paroxysmal ventricular tachycardia (Primary Dx); Pure hypercholesterolemia; Chronic obstructive pulmonary disease with acute exacerbation 07/22/2025 11:13 AM EDT - 07/22/2025 11:59 PM EDT Hospital Encounter Non-Invasive Cardiology [address] [place] [address] Mando Givens MD Discharge Disposition: Home or Self Care 06/15/2025 9:30 AM EDT Office Visit [facility] Pulmonary, Allergy and Critical Care Medicine [address] [place] [id number] Mando Givens MD Nodule of left lung (Primary Dx); Palpitations 06/15/2025 Procedure Pass Non-Invasive Cardiology [address] [place] [address] 06/09/2025 2:03 PM EDT - 06/09/2025 11:59 PM EDT Hospital Encounter [facility], Ct Scan - [facility] [address] [place] [address] Mando Givens MD Discharge Disposition: Home or Self Care 06/03/2025 11:30 AM EDT Office Visit [facility] [address], [address] [place] [address] Jacoby Espinoza DO Abnormal electrocardiogram (ECG) (EKG) (Primary Dx); Pure hypercholesterolemia; Chronic obstructive pulmonary disease with acute exacerbation; Left bundle branch block 05/16/2025 Orders Only [facility] [address], [address] [place] [address] Lam Mcguire MD Abnormal electrocardiogram (ECG) (EKG) (Primary Dx) 05/15/2025 1:47 PM EDT - 05/15/2025 5:57 PM EDT Emergency [facility] [address] [place] [address] Discharge Disposition: Home or Self Care 12/22/2024 Procedure Pass [facility], Ct Scan - [facility] [address] [place] [address] from Last 3 Months Immunizations Immunization Administration Dates Next Due COVID-19 (Pre-08/13) Pfizer Vaccine, mRNA, PF 03/23/2021,03/02/2021 INFLUENZA, SPLIT VIRUS, TRIV ALENT W/ PRESERVATIVE IM 08/10/2021,08/09/2020,07/11/2017,08/01,07/17/2013 Influenza High-Dose Quadriva lent Preservative Free IM 08/02/2023 Influenza Quadrivalent MDCK Preservative Free IM 07/11/2017 Influenza Quadrivalent Prese rvative Free IM 08/01/2018,08/01/2016 Influenza Quadrivalent w/ Pr eservative IM 06/22/2021,08/10/2020 Pneumococcal polysaccharide PPSV23 01/01/2020, Tdap 07/17/2020,07/17/2013 Zoster recombinant 09/04/2023 Social History Tobacco Use Types Packs/Day Years Used Date Smoking Tobacco: Every Day Cigarettes 0.3 54 Smokeless Tobacco: Never Tobacco Cessation:Ready to Q uit: Not Asked; Counseling Given: Not Answered Comments:Patient has been smoking since age of [age] years old. She [...] as food, clothing, or medical care? No 05/15/2025 In the past 12 months have y ou been in a relationship with a person who hurts, threatens, or tries to control you? No 05/15/2025 Are you denied basic needs s uch as food, clothing, or medical care? No 05/15/2025 In the past 12 months have y ou been in a relationship with a person who hurts, threatens, or tries to control you? No 05/15/2025 Comments Unknown Sex and Gender Information Value Date Recorded Sex Assigned at Female 07/29/2018 9:27 AM EDT Legal Sex Female 5:30 AM EST Gender Identity Female 07/29/2018 9:27 AM EDT Sexual Orientation Straight 07/29/2018 9: 27 AM EDT Last Filed Vital Signs Vital Sign Reading Time Taken Comments Blood Pressure 136/62 07/31/2025 8:11 AM EDT Pulse 74 07/31/2025 8:11 AM EDT Temperature 36.3 C (97.4 F) 06/15/2025 9:43 AM EDT Respiratory Rate 14 05/15/2025 5:56 PM EDT Oxygen Saturation 98% 07/31/2025 8:11 AM EDT Inhaled Oxygen Concentration - - Weight 61.7 kg (136 lb) 07/31/2025 8:11 AM EDT Height 157.6 cm (5' 2.03 ) 07/31/2025 8:11 AM E DT Body Mass Index 24.85 07/31/2025 8:11 AM EDT Plan of Treatment Upcoming Encounters Date Type Department Care Team (Late st Contact Info) Description 05/16/2025 Procedure Pass [facility] [address] Jennifer [place] [id number] 06/15/2025 Procedure Pass [facility], Ct Scan - [address] [address] 08/14/2025 2:30 PM EDT Appointment [place], Ct Scan [address] [address] Mando Givens MD [address] [place] [address] 08/17/2025 1:45 PM EDT Appointment Echo Lab [address] [address] Lam Mcguire MD [address] [place] [address] 08/21/2025 9:00 AM EDT Appointment Non-Invasive Cardiology [address] [place] [address] [place] [address] Jacoby Espinoza DO [address] [place] [phone] 10/02/2025 9:30 AM EST Office Visit [facility] Pulmonary, Allergy and Critical Care Medicine [address] [place] [address] Mando Givens MD [address] [place] [address] 11/02/2025 9:00 AM EST Office Visit [facility] [address] [facility], [address] [place] [address] Katie Ho PA-C [address] [place] [address] 06/07/2026 1:30 PM EDT Office Visit [facility] [address] Floor, [address] [place] [address] Jacoby Pineda DO [address] [address] [email or web address] Health Maintenance Due Date Last Done Comments DEPRESSION SCREENING 1969 HEPATITIS C SCREENING 1975 COLOGUARD 2002 FIT TEST 2002 FOBT 2002 SIGMOIDOSCOPY 2002 VIRTUAL COLONOSCOPY 2002 RSV VACCINE (1 - Risk 50-74 years 1-dose series) 2007 PNEUMOCOCCAL VACCINES (50+ years) (2 of 2 - PCV) 12/31/2020 01/01/2020, 12/31/2014 OSTEOPOROSIS SCREENING INITIAL (ONE-TIME) 2022 MAMMOGRAM 01/31/2023 01/31/2021, 05/22, 04/03/2018, Additional history exists LIPID PANEL 07/30/2023 07/30/2018 INFLUENZA VACCINE (#1) 2025 , 08/10/2021, 06/22/2021, Additional history exists COVID-19 VACCINE ( season) 2025 11/11/2021, 03/23/2021, 03/02/2021 CREATININE LEVEL 05/15/2026 05/15/2025, 01/2019, 01/02/2019, Additional history exists POTASSIUM LEVEL 05/15/2026 05/15/2025, 12/0 01/2019, 01/02/2019, Additional history exists SMOKING Hx and SMOKELESS TOBACCO SCREENING 07/31/2026 07/31/2025 Adult Td,Tdap Booster 07/17/2030 07/17/2020, 013 COLONOSCOPY 11/08/2032 11/08/2022 COLORECTAL CANCER SCREENING 11/08/2032 ZOSTER VACCINES Completed 01/16/2025, 09/04/2023 HEPATITIS A VACCINES Aged Out No long er eligible based on patient's age to complete this topic HIB VACCINES Aged Out No longer eligi ble based on patient's age to complete this topic MENINGOCOCCAL VACCINES (ACWY) Aged Out No longer eligible based on patient's age to complete this topic MENINGOCOCCAL VACCINES (B) Aged Out N o longer eligible based on patient's age to complete this topic Medical Devices Implanted Type Area Ic Designer Custom Device Identifier Shelf Expiration Date Model / Serial / Lot Left Humerus Screws Procedures Procedure Name Priority Date/Time Associated Diagnosis Comments HOLTER MONITOR 48 HOURS Routine 07/24/2025 2:[address] CHEST WITHOUT CONTRAST Routine 06/09/2025 2:10 PM EDT Asthma-COPD overlap syndrome Tobacco abuse D-DIMER STAT 05/15/2025 3:23 PM EDT TROPONIN STAT 05/15/2025 3:23 PM EDT PT-INR STAT 05/15/2025 2:22 PM EDT TROPONIN STAT 05/15/2025 2:22 PM EDT LFTS (HEPATIC PANEL) STAT 05/15/2025 2:22 PM EDT BASIC METABOLIC PANEL STAT 05/15/2025 2:22 PM EDT CBC AND DIFFERENTIAL STAT 05/15/2025 2:22 PM EDT ECG 12-LEAD STAT 05/15/2025 1:33 PM EDT ENDOSCOPY, COLON 11/08/2022 10:5 4 AM EST BI MAMMOGRAM OUTSIDE (NO INTERPRETATION) Routine 01/31/2021 12:00 AM EDT LIPID PANEL Routine 07/30/2018 5:13 AM EDT from Last 3 Months or Most Recently Relevant to Health Maintenance Results * Holter Monitor 48 Hours (07/24/2025 2:44 PM EDT) Total Beats 191,910 [facility] Ventricular Ectopy Total Beats 19,679 [facility] Ventricular Ectopy Single Beats 1,142 [facility] Ventricular Pair 631 [facility] Ventricular Runs 1,265 [facility] Longest Ventricular Beats 312 [facility] Longest Ventricular Rate 98 BPM [facility] Fastest Ventricular Beats 3 [facility] Fastest Ventricular Rate 198 BPM [facility] Supraventricular Total Beats 2,163 [facility] Supraventricular Ectopic Single Beats 842 [facility] Supraventricular Pairs 518 [facility] Supraventricular Runs 85 [facility] Supraventricular Longest Run 7 [facility] Longest Supraventricular Run Rate 82 BPM [facility] Fastest Supraventricular Run Rate 89 BPM [facility] PHS CV HOLTER SUPRAVENTRICULAR FASTEST RUN 3 [facility] Mean Heart Rate 76 BPM [facility] Maximum Heart Rate 127 BPM P [facility] Minimum Heart Rate 58 BPM P [facility] Longest RR 2.000 S [facility] Anatomical Region Laterality Modality Heart Other 07/22/2025 11:3 7 AM EDT 07/24/2025 2:43 PM EDT Narrative 07/25/2025 9:41 AM EDT Holter report - Indication-palpitations PVC burden of 10% Supraventricular ectopic burden of 1% No episodes of A-fib, pauses, SVT runs greater than 4 beats Multiple runs of VT noted-upon further evaluation, appeared to be sinus with aberrant conduction as QRS complexes go from narrow to bundle branch block pattern - Few PVCs noted - Recommendation-correlate clinically Holter Monitor Main Form Mean HR: 76 bpm Max HR: 127 bpm Min HR: 58 bpm Ventricular ectopic beats - total: 19,679 Ventricular ectopic beats - singles: 1,142 Ventricular ectopic beats - pairs: 631 Ventricular ectopic beats - runs: 1,265 The longest ventricular run was 312 at 98 bpm. The fastest ventricular run was 3 beatsat 198 bpm. Supraventricular ectopic beats - total: 2,163 Supraventricular ectopic beats - singles: 842 Supraventricular ectopic beats - pairs: 518 Supraventricular ectopic beats - runs: 85 The longest supraventricular run was 7 beats at 82 bpm. The fastest supraventricular run was 3 beats at 89 bpm. Longest R-R interval2.000 sec Mando Givens MD [facility] ORDERABL ES Final Result * CT CHEST WITHOUT CONTRAST (06/09/2025 2:10 PM EDT) Anatomical Region Laterality Modality Chest Computed Tomogra phy 06/15/2025 11:2 2 AM EDT Impressions 06/16/2025 7:02 AM EDT Compared to June 20, 2024: 1. No new suspicious lung nodule. 2. Similar focal consolidative opacity in the lingula. 3. Slight increased fibrotic interstitial lung disease since 2023, but significantly increased since 2019; with a pattern nonspecific for UIP. Differential includes smoking-related interstitial lung disease and connective tissue disease- associated interstitial lung disease (CTD-ILD). 4. New nondisplaced right rib fracture, likely chronic. Narrative 06/16/2025 7:[address] CHEST WITHOUT CONTRAST Referring clinician's provided indication for this examination in Epic: * Dyspnea, chronic, unclear etiology; * Lung nodule, 6-8mm TECHNIQUE: Multidetector CT of the chest was performed without intravenous contrast using tailored dose modulation. COMPARISON: CT CHEST WITHOUT CONTRAST FINDINGS: Devices/Tubes/Lines: None. Lungs: The central airways are patent. Slight increased predominantly subpleural reticulation, groundglass and focal honeycombing involving the anterior upper lobes and posterior upper lower lobes. Scattered centrilobular emphysema. No new suspicious lung nodule. Calcified lymph nodes. Focal consolidative opacity in the lingula measuring 0.8 x 0.7 cm (4; 201), similar to prior. Other scattered lung nodules also similar in the largest measures 4 mm in the right upper lobe (4; 100). Pleura: No pleural effusion or pneumothorax. Mediastinum: No thyroid nodules. Heart size is normal. No significant pericardial effusion. Moderate amount of coronary calcifications. Atherosclerotic aorta and branches. Lymph Nodes: No enlarged supraclavicular, axillary, mediastinal, or hilar lymph nodes by CT threshold criteria. Upper Abdomen: Absence/Timing of intravenous contrast limits sensitivity for detecting solid organ findings. Chest Wall: No chest wall mass. Bones: No suspicious lytic or blastic lesions. Similar old left rib fractures. New nondisplaced fracture involving the right mid fifth rib with signs of healing, likely chronic. Degenerative changes. Procedure Note Laure De Oliveira MD - 06/16/2025 CT CHEST WITHOUT CONTRAST Referring clinician's provided indication for this examination in [facility]: *Dyspnea, chronic, unclear etiology; * Lung nodule, 6-8mm TECHNIQUE: Multidetector CT of the chest was performed without intravenouscontrast using tailored dose modulation. COMPARISON: CT CHEST WITHOUT CONTRAST 2023- FINDINGS: Devices/Tubes/Lines: None. Lungs: The central airways are patent. Slight increased predominantlysubpleural reticulation, groundglass and focal honeycombing involving theanterior upper lobes and posterior upper lower lobes. Scatteredcentrilobular emphysema. No new suspicious lung nodule. Calcified lymphnodes. Focal consolidative opacity in the lingula measuring 0.8 x 0.7 cm(4; 201), similar to prior. Other scattered lung nodules also similar inthe largest measures 4 mm in the right upper lobe (4; 100). Pleura: No pleural effusion or pneumothorax. Mediastinum: No thyroid nodules. Heart size is normal. No significantpericardial effusion. Moderate amount of coronary calcifications.Atherosclerotic aorta and branches. Lymph Nodes: No enlarged supraclavicular, axillary, mediastinal, or hilarlymph nodes by CT threshold criteria. Upper Abdomen: Absence/Timing of intravenous contrast limits sensitivityfor detecting solid organ findings. Chest Wall: No chest wall mass. Bones: No suspicious lytic or blastic lesions. Similar old left ribfractures. New nondisplaced fracture involving the right mid fifth ribwith signs of healing, likely chronic. Degenerative changes. IMPRESSION: Compared to June 20, 2024: 1. No new suspicious lung nodule. 2. Similar focal consolidative opacity in the lingula. 3. Slight increased fibrotic interstitial lung disease since 2023, butsignificantly increased since 2019; with a pattern nonspecific for UIP.Differential includes smoking-related interstitial lung disease andconnective tissue disease- associated interstitial lung disease(CTD-ILD). 4. New nondisplaced right rib fracture, likely chronic. Mando Givens MD IM CT CHEST Final Result * D-dimer (05/15/2025 3:23 PM EDT) D-DIMER <215 <500 ng/mL [facility] Comment:In patients with low to moderate pre-test probability scores for VTE (PE or DVT), a D-Dimer cut-off less than 500 ng/mL (FEU) has a negative predictive value (NPV) of 97 to 100%. Blood 05/15/2025 3:23 PM EDT 05/15/2025 3:40 PM EDT Izabela GOMEZ-C LAB BLOOD ORDERABLES Fi nal Result Performing Organization Address City/[facility]/ZIP Co de Phone Number [address] [address] * Troponin (05/15/2025 3:23 PM EDT) Only the most recent of2 resultswithin the time period is included. Pathologist [facility] Troponin-T, HS Gen5 <6 0 - 9 ng/L [facility] Blood 05/15/2025 3:23 PM EDT 05/15/2025 3:39 PM EDT Izabela GOMEZ-C LAB BLOOD ORDERABLES Fi nal Result Performing Organization Address [facility] Co de Phone Number [address] [address] * LFTs (hepatic panel) (05/15/2025 2:22 PM EDT) ALKALINE PHOSPHATASE 76 39 - 117 U/L [facility] TOTAL BILIRUBIN <0.2 0.0 - 1.2 mg/dL [facility] DIRECT BILIRUBIN <0.1 0.0 - 0.2 mg/dL [facility] Bilirubin (Indirect) NOT CALCULATED 0 - 1.5 mg/dL [facility] AST 15 0 - 37 U/L [facility] ALT 8 0 - 40 U/L [facility] TOTAL PROTEIN 7.0 6.5 - 8.0 g/dL [facility] ALBUMIN 3.9 3.9 - 4.8 g/dL [facility] GLOBULIN 3.1 1 - 4.8 g/dL [facility] A/G Ratio 1.26 1.00 - 4.80 RATIO [facility] Blood 05/15/2025 2:22 PM EDT 05/15/2025 2:38 PM EDT Izabela ANGELESC LAB BLOOD ORDERABLES Fi nal Result Performing Organization Address City/[facility]/ZIP Co de Phone Number [address] [address] * PT-INR (05/15/2025 2:22 PM EDT) PT 12.6 10.2 - 12.9 sec [facility] INR 1.0 0.9 - 1.1 [facility] Comment:Therapeutic range fo r oral Vitamin K antagonists: 2.0-3.5 Blood 05/15/2025 2:22 PM EDT 05/15/2025 2:38 PM EDT Izabela GOMEZ-C LAB BLOOD ORDERABLES Fi nal Result Performing Organization Address [facility]/ZIP Co de Phone Number [address] [address] * (ABNORMAL) CBC and differential (05/15/2025 2:22 PM EDT) WBC 8.93 4.00 - 11.00 K/uL [facility] RBC 4.33 4.00 - 5.20 M/uL [facility] HGB 13.8 12.0 - 16.0 g/dL [facility] HCT 40.5 36.0 - 46.0 % [facility] PLT 229 150 - 450 K/uL [facility] MCV 93.5 80.0 - 100.0 fL [facility] MCH 31.9(H) 27.0 - 31.0 pg [facility] MCHC 34.1 32.0 - 36.0 g/dL [facility] RDW 12.5 11.5 - 14.5 % [facility] MPV 11.3 8.4 - 12.0 [facility] NRBC 0.00 0.00 /100 WBCs [facility] ABSOLUTE NRBC 0.00 0.00 K/uL [facility] DIFF METHOD Auto [facility] NEUTS 38.0(L) 48.0 - 76.0 % [facility] LYMPHS 54.3(H) 18.0 - 41.0 % [facility] MONOS 5.9 4.0 - 11.0 % [facility] EOS 1.2 0.0 - 5.0 % [facility] BASOS 0.3 0.0 - 1.5 % [facility] Granulocytes, immature (%) 0.3 0.0 - 0.9 % [facility] ABSOLUTE NEUTS 3.38 1.92 - 7.60 K/uL [facility] ABSOLUTE LYMPHS 4.85(H) 0.72 - 4.10 K/uL [facility] ABSOLUTE MONOS 0.53 0.16 - 1.10 K/uL [facility] ABSOLUTE EOS 0.11 0.00 - 0.50 K/uL [facility] ABSOLUTE BASOS 0.03 0.00 - 0.15 K/uL [facility] Granulocytes, immature 0.03 0.00 - 0.09 K/uL [facility] Blood 05/15/2025 2:22 PM EDT 05/15/2025 2:38 PM EDT us Izabela Vidales PA-C LAB BLOOD ORDERABLES Fi nal Result Performing Organization Address City/State/[facility] Co de Phone Number [address] [address] * (ABNORMAL) Basic metabolic panel (05/15/2025 2:22 PM EDT) SODIUM 136 133 - 146 mmol/L [facility] CHLORIDE 101 96 - 108 mmol/L [facility] POTASSIUM 3.6 3.3 - 5.1 mmol/L [facility] CO2 24 21 - 35 mmol/L [facility] BUN 6 6 - 19 mg/dL [facility] CREATININE 0.70 0.5 - 1.5 mg/dL [facility] GLUCOSE 129(H) 70 - 99 mg/dL [facility] CALCIUM 9.3 8.4 - 10.3 mg/dL [facility] EGFR 95 >59 mL/min/1.7 3m2 [facility] Comment:Estimated glomerular filtration rate calculated using the CKD-EPI refit equation. ANION GAP 15 10 - 20 mmol/L [facility] Blood 05/15/2025 2:22 PM EDT 05/15/2025 2:38 PM EDT us Izabela Vidales PA-C LAB BLOOD ORDERABLES Fi nal Result [facility] [address] [place] [address] * ECG 12-LEAD (05/15/2025 1:33 PM EDT) Ventricular Rate EKG/MIN 80 BPM [facility] Atrial Rate 80 BPM [facility] IA Interval 164 ms [facility] QRS Duration 142 ms [facility] QT Interval 404 ms [facility] QTC Interval 465 ms [facility] P [place] 64 degrees [facility] R Wave [place] 67 degrees [facility] T Wave [place] -76 degrees [facility] 05/15/2025 1:33 PM EDT 05/16/2025 11:27 AM EDT Narrative [facility] - 05/16/2025 11:27 AM EDT Normal sinus rhythm with sinus arrhythmia Left bundle branch block Abnormal ECG When compared with ECG of 28-Nov-2024 11:10, Left bundle branch block is now Present Confirmed by Lam Mcguire ([id number]) on 05/16/2025 11:27:17 AM us Ihsan Diaz MD ECG ORDERABLES Final Resul t [facility] * ENDOSCOPY, COLON (11/08/2022 10:54 AM EST) Narrative Transcriptions Peri Koehler MD - 11/08/2022 10:54 AM EST [facility] Patient Name: Kayla Rapp Attending MD:: PERI KOEHLER MD Procedure Date: 11/08/2022 10:54 AM Date of : 1955 Age: 67 Admit Type: Outpatient Gender: Female Room: [place] [address] Referring MD: ALLIE SELF NP Exam Type: Colonoscopy Indications: High risk colon cancer surveillance: Personalhistory of colonic polyps, Last colonoscopy: 2019 Medications: Monitored Anesthesia Care Procedure: Informed consent was obtained from the patientafter discussion of the indications, limitations, alternatives, benefits, and risks of the procedure. Risks specifically discussed include but are not limited to medication reactions, missed lesions, bleeding, perforation, or the need for emergent surgery. Throughout the procedure, the patient's blood pressure, pulse, end-tidal CO2, and oxygensaturations were monitored continuously. The Colonoscope was introduced through the anus and advanced to the terminal ileum, with identificationof the appendiceal orifice and IC valve. Thecolonoscopy was performed without difficulty. The patient tolerated the procedure well. The quality of thebowel preparation was fair. Complications: No immediate complications. Estimated blood loss:None. Findings: The terminal ileum appeared normal. A 4 mm polyp was found in the ascending colon. The polyp was sessile. The polyp was removed with acold snare. Resection and retrieval were complete. A 4 mm polyp was found in the descending colon. The polyp was sessile. The polyp was removed with acold snare. Resection and retrieval were complete. Multiple diverticula were found in the sigmoidcolon. A moderate amount of semi-solid stool was found inthe entire colon, interfering with visualization. A localized area of moderately erythematous mucosawas found in the sigmoid colon. This was biopsied witha cold forceps for histology. Internal hemorrhoids were found duringretroflexion. The hemorrhoids were small. The exam was otherwise without abnormality. Impression: - Preparation of the colon was fair. - The examined portion of the ileum was normal. - One 4 mm polyp in the ascending colon, removedwith a cold snare. Resected and retrieved. - One 4 mm polyp in the descending colon, removedwith a cold snare. Resected and retrieved. - Diverticulosis in the sigmoid colon. - Stool in the entire examined colon. - Erythematous mucosa in the sigmoid colon.Biopsied. - Internal hemorrhoids. - The examination was otherwise normal. Recommendation: - Patient has a contact number available for emergencies. The signs and symptoms of potential delayed complications were discussed with thepatient. Return to normal activities tomorrow. Written discharge instructions were provided to thepatient. - Await pathology results. - Repeat colonoscopy within 1 year for surveillance with careful attention to prep instructions. Peri Koehler PERI KOEHLER MD 11/08/2022 11:25:31 AM This report has been signed electronically. Number of Addenda: 0 Note Initiated On: 11/08/2022 10:54 AM Procedure Date: 11/08/2022 10:54:[address] [place] [address] Allie Self NP GI PROCEDURE ORDERABLES Final Result * Mammogram Outside (No Interpretation) (01/31/2021 12:00 AM EDT) Narrative SYSTEMGENERATED, DOCUMENTATION - 03/16/2023 11:22 AM EDT This study is for PACS storage only and not for interpretation. us Unknown Unknown MD TRUJILLO OUTSIDE IMAGING W/OUT INT ERPRETATION Final Result * (ABNORMAL) Lipid panel (07/30/2018 5:13 AM EDT) HDL 56 mg/dL [facility] Comment: Interpretation: Risk Level Females Decreased >55mg/dL Average 50-55 mg/dL Increased <50 mg/dL CHOLESTEROL 134 0 - 240 mg/dL [facility] TRIGLYCERIDES 123 30 - 160 mg/dL [facility] LDL 53 50 - 129 mg/dL [facility] Comment: LDL levels in terms of risk for coronary heart disease: <100 mg/dL: Optimal 100-129 mg/dL: Near or above optimal 130-159 mg/dL: Borderline high 160-189 mg/dL: High >190 mg/dL: Very High CARDIAC RISK RATIO 2.4(L) 3.3 - 4.4 [facility] Blood 07/30/2018 5:13 AM EDT 07/30/2018 6:59 AM EDT us Titus Morfin MD LAB BLOOD ORDERABLES Ema barbosa Result [facility] [address] [place], [place] [id number] from Last 3 Months or Most Recently Relevant to Health Maintenance Insurance MED[place] PART A & [place] [id number] [facility] MEDICARE REPLACEMENT MEDICARE PART A & B O MEDICARE REPLACEMENT MEDICARE PART A & B MEDICARE PART A & B MEDICARE PART A & B O MEDICARE REPLACEMENT JASON RAMIREZ [id number] MEDICARE PART A & B MEDICARE PART A & B MEDICARE REPLACEMENT JASON RAMIREZ [id number] MEDICARE PART A & B MEDICARE REPLACEMENT MEDICARE PART A & B [facility] MEDICARE REPLACEMENT Advance Directives For more information, please contact: [phone] (9AM - 5PM [facility], Sunday-Sunday) * Full Code (Confirmed) (Latest Code Status on File) Date Activated Date Inactivated Comments 07/29/2018 4:32 PM 08/01/2018 3:35 PM Question Answer Comments Code Status Confirmed With: Patient Care Teams Motion Picture Set Grip Relationship Specialty Start Date End Date Nadira Goetz MD [address] [place] [address] [place] [phone] [email or web address] PCP - General Family Medicine 05/15/25 Additional Source Comments The information contained in this document represents components of the legal health record. It is not the complete legal health record.[facility]
--- OUTSIDE RECORDS SUMMARY | 2025-08-12 19:07 | XMS_ITS | Encounter Summary ---
Author Organization [facility] Address [address] [place] [address] Phone Care Team Providers Care Credit Specialist Name Role Phone Nadira Goetz MD Primary Care Provider + [phone] Nadira Goetz MD Primary Care Provider + [phone] Encounter Details Date Type Department Care Team (Late st Contact Info) Description 02/21/2024 Procedure Pass [facility], Ct Scan - [address] [address] Social History Tobacco Use Types Packs/Day Years [...] Info) Description 05/16/2025 Procedure Pass [facility] [address] [place] [address] 06/15/2025 Procedure Pass [address] [address] 08/14/2025 2:30 PM EDT Appointment [address] [address] Mando Givens MD [address] [place] [address] 08/17/2025 1:45 PM EDT Appointment Echo Lab [address] [place] [address] Lam Mcguire MD [address] [place] [address], [address] [address] 08/21/2025 9:00 AM EDT Appointment Non-Invasive Cardiology [address] [place] [address] [place] [address] Jacoby Espinoza DO [address] [place] [address] 10/02/2025 9:30 AM EST Office Visit [facility], Allergy and Critical Care Medicine [address] [place] [address] Mando Givens MD 30 [place] [address] 11/02/2025 9:00 AM EST Office Visit [facility] [address] [facility], [address] [address] Katie Ho PA-C [address] [place] [address] 06/07/2026 1:30 PM EDT Office Visit [facility] [address], [address] [address] Jacoby Espinoza DO [address] [address] [email or web address] documented as of this encounter Visit Diagnoses Not on filedocumented in this encounter Additional Health Concerns Infection Onset Date Last Indicated Resolved Time CoV-Risk 11/28/2024 11/28/2024 12/09/2024 1:22 AM EST documented as of this encounter Care Teams Credit Specialist Relationship Specialty Start Date End Date Nadira Goetz MD PCP - General Family Medicine 02/21/24 05/14/25 Nadira Goetz MD [address] [place] [address] [place] [address] PCP - General Family Medicine 05/15/25 documented as of this encounter Additional Source Comments The information contained in this document represents components of the legal health record. It is not the complete legal health record.[facility]
--- OUTSIDE RECORDS SUMMARY | 2025-08-12 19:07 | XMS_ITS | Encounter Summary ---
Author Organization [facility] Address [address] [place] [address] Phone Care Team Providers Care Senior Publications Specialist Name Role Phone Perry Carreon MD Primary Care Provider + [phone] Allie Ceron NP Primary Care Provider Nadira Goetz MD Primary Care Provider + [phone] Nadira Goetz MD Primary Care Provider + [phone] Encounter Details Date Type Department Care Team (Late st Contact Info) Description 08/01/2018 Procedure Pass [facility], [facility] [address] [place] [address] Social History Tobacco Use Types Packs/Day Years [...] Info) Description 05/16/2025 Procedure Pass [facility] [place] [address] [place] [address] 06/15/2025 Procedure Pass [facility], Ct Scan - [facility] [address] [place] [address] 08/14/2025 2:30 PM EDT Appointment [facility] Ct Scan - [facility] [address] [place] [address] Mando Givens MD [address] [place] [address] 08/17/2025 1:45 PM EDT Appointment Echo Lab [address] [place] [address] Lam Mcguire MD [address] [place] [address] 08/21/2025 9:00 AM EDT Appointment Non-Invasive Cardiology [address] [place] [address] [place] [address] Jacoby Espinoza DO [address] [place] [address] 10/02/2025 9:30 AM EST Office [facility] Pulmonary, Allergy and Critical Care Medicine [address] [place] [address] Mando Givens MD [address] [place] [address] 11/02/2025 9:00 AM EST Office Visit [facility] [address], [address] [address] Katie Ho PA-C [address] [place] [address] 06/07/2026 1:30 PM EDT Office Visit [facility] [address] [facility], [address] [place] [address] Jacoby Espinoza DO [address] [place] [address] [email or web address] documented as of this encounter Visit Diagnoses Not on filedocumented in this encounter Additional Health Concerns Infection Onset Date Last Indicated Resolved Time COVID-19 04/24/2022 04/24/2022 05/15/2022 1:21 AM EDT CoV-Risk 11/28/2024 11/28/2024 12/09/2024 1:22 AM EST documented as of this encounter Care Teams Senior Publications Specialist Relationship Specialty Start Date End Date Perry Carreon MD PCP - General Internal Medicine 07/29/18 11/07/22 Allie Ceron NP [address] [place] [address] [email or web address] PCP - General Nurse Practitioner 11/08/22 02/20/24 Nadira Goetz MD [address] [place] [address] [email or web address] PCP - General Family Medicine 02/21/24 05/14/25 Nadira Goetz MD [address] [place] [address] [place] [address] [email or web address] PCP - General Family Medicine 05/15/25 documented as of this encounter Additional Source Comments The information contained in this document represents components of the legal health record. It is not the complete legal health record.[facility]
--- OUTSIDE RECORDS SUMMARY | 2025-08-12 19:07 | XMS_ITS | Encounter Summary ---
Author Organization [facility] Address [address] [place] [address] Phone Care Team Providers Care Automatic Splicing Machine Operator Name Role Phone Nadira Goetz MD Primary Care Provider + [phone] Encounter Details Date Type Department Care Team (Late st Contact Info) Description 06/15/2025 Procedure Pass Non-Invasive Cardiology 30 [place] [address] Social History Tobacco Use Types Packs/Day Years [...] Info) Description 05/16/2025 Procedure Pass [facility] [address] [address] 06/15/2025 Procedure Pass [address] [address] 08/14/2025 2:30 PM EDT Appointment [address] [address] Mando Givens MD [address] [place] [address] 08/17/2025 1:45 PM EDT Appointment Echo [facility] [address] [place] [address] Lam Mcguire MD [address] [place] [address] 08/21/2025 9:00 AM EDT Appointment Non-Invasive Cardiology [address] [place] [address] [place] [address] Jacoby Espinoza DO [address] [place] [address] 10/02/2025 9:30 AM EST Office Visit [facility] Pulmonary, Allergy and Critical Care Medicine [address] [place] [address] Mando Givens MD 30 [place] [address] 11/02/2025 9:00 AM EST Office Visit [facility] [address], [address] [place] [address] Katie Ho PA-C [address] [place] [address] 06/07/2026 1:30 PM EDT Office Visit [facility] 22 [facility] 3rd [facility], [address] [place] [address] Jacoby Espinoza DO 22 [facility] [address] [place] [address] [email or web address] documented as of this encounter Visit Diagnoses Not on filedocumented in this encounter Care Teams Automatic Splicing Machine Operator Relationship Specialty Start Date End Date Nadira Goetz MD [address] [place] [phone] [email or web address] PCP - General Family Medicine 05/15/25 documented as of this encounter Additional Source Comments The information contained in this document represents components of the legal health record. It is not the complete legal health record.[facility]
--- OUTSIDE RECORDS SUMMARY | 2025-08-12 19:07 | XMS_ITS | Encounter Summary ---
Author Organization [facility] Address [address] [place] [address] Phone Care Team Providers Care Barrelhead Inspector Name Role Phone Nadira Goetz MD Primary Care Provider + [phone] Encounter Details Date Type Department Care Team (Late st Contact Info) Description 08/12/2025 Telephone [facility] 22 [facility] 3rd Floor, [address] [place], [place] [phone] Jacoby Espinoza DO 22 [facility] [address] [place], [place] [phone] [email or web address] Social History Tobacco Use Types Packs/Day Years [...] AM EDT documented as of this encounter Progress Notes * Valeria Del Cid - 08/12/2025 9:15 AM EDT Patient showed up for cancelled ECHO. Did not see documentation to why it had been cancelled. Please advise if it needs to be rescheduled as the order itself was not cancelled. documented in this encounter Plan of Treatment Upcoming Encounters Date Type Department Care Team (Late st Contact Info) Description 05/16/2025 Procedure Pass [facility] [address] [place] [address] 06/15/2025 Procedure Pass [address] [address] 08/14/2025 2:30 PM EDT Appointment [address] [address] Mando Givens MD [address] [place] [address] 08/17/2025 1:45 PM EDT Appointment [facility] [address] [place] [address] Lam Mcguire MD [address] [address] 08/21/2025 9:00 AM EDT Appointment Non-Invasive Cardiology [address] [place] [address] [place] [address] Jacoby Espinoza DO [address] [address] 10/02/2025 9:30 AM EST Office Visit [facility] Allergy [facility] Critical Care Medicine [address] [place] [address] Mando Givens MD [address] [place] [address] 11/02/2025 9:00 AM EST Office Visit [facility] [address] 3rd [facility], [address] [address] Katie Ho PA-C [address] [place] [address] 06/07/2026 1:30 PM EDT Office Visit [facility] [address] [facility], [address] [address] Jacoby Espinoza DO [address] [place] [address] documented as of this encounter Visit Diagnoses Not on filedocumented in this encounter Care Teams Barrelhead Inspector Relationship Specialty Start Date End Date [place] [phone] [email or web address] PCP - General Family Medicine 05/15/25 documented as of this encounter Additional Source Comments The information contained in this document represents components of the legal health record. It is not the complete legal health record.[facility]
== END 2025-08-12 13:57 | disposition home or self-care (01) ==
LOC: HO.HSM 13:29
PROVIDERS: PCP Family Medicine; Referring Provider Hospitalist; Visit Provider Psychiatry & Neurology Neurology
DX: I67.89 Other cerebrovascular disease (principal); R55 Syncope and collapse; G44.209 Tension-type headache, unspecified, not intractable; G31.84 Mild cognitive impairment of uncertain or unknown etiology
CPT/HCPCS: 99214

== ENCOUNTER → 2025-08-12 13:28 | Outpatient (BNVA) | payer OTHER, SELFPAY | PROVIDERS: PCP Family Medicine; Referring Provider Hospitalist; Visit Provider Psychiatry & Neurology Neurology | DX: I67.89 Other cerebrovascular disease (principal); R55 Syncope and collapse; G44.209 Tension-type headache, unspecified, not intractable | CPT/HCPCS: 99212 ==